=== PATIENT | male | born 1980 ===

== ENCOUNTER 2020-06-27 14:37 | Inpatient (IN) | payer BC ==
[~2020-06-27] VITALS: Ht 177.8 cm; Wt 89.1 kg
--- NOTE | 2020-06-27 14:15 | NUR ---
PT ARRIVED VIA EMS ON STRETCHER. PT AMBULATED TO BATHROOM AND BACK INTO BED. PT A/O X3. RR EVEN NON LABORED. TEMP IN ROOM ADJUSTED PER REQUEST. VS STABLE. PT DENIES PAIN, STATES TO BE A "LITTLE NAUSOUS FROM THE RIDE." PT KEPT NPO PER VERBAL ORDER FROM ENZO ZABALA IN ROOM UNTIL FURTHER NOTICE. PT AWARE AND AGREES TO PLAN OF CARE. SPOUSE GIVEN ROOM INFORMATION. NO NEEDS VOICED. CLWR.
[2020-06-27 14:53] VITALS: BP 166/97; Ht 177.8 cm; Wt 89.1 kg
[2020-06-27 15:59] VITALS: BP 156/84
[2020-06-27 16:59] LABS: BASOPHILS 0.1 % (0-2); EOSINOPHILS 0.1 % (0-7); HEMATOCRIT 38.8 % (42.0-54.0); HEMOGLOBIN 12.8 g/dL (13.5-17.5); IMMATURE GRANULOCYTES 0.1 % (0-5); LYMPHOCYTE ABS# 0.62 10x3/uL (1.32-3.57); LYMPHOCYTES 9.1 % (15-50); MCH 30.1 pg (26.0-34.0); MCV 91.3 fL (80.0-100.0); MEAN PLATELET VOLUME 9.7 fL (7.4-10.4); NEUTROPHILS 83.6 % (40-80); PLATELET COUNT 193 10x3/uL (130-400); RBC 4.25 10x6/uL (4.20-6.10); RDW 12.3 % (11.5-14.5); WBC 6.8 10x3/uL (4.8-10.8)
[2020-06-27 17:16] LABS: ANION GAP 14.3 mmol/L (8-16); BILIRUBIN - TOTAL 0.51 mg/dL (0.2-1.3); CALCIUM 8.4 mg/dL (8.5-10.1); CREATININE - SERUM 4.1 mg/dL (0.6-1.3); INR 1.18 (0.85-1.17); POTASSIUM - SERUM 4.3 mmol/L (3.5-5.1); PROTEIN - SERUM 6.3 g/dL (6.4-8.2); PROTIME 13.9 SECONDS (11.6-15.0)
[2020-06-27 21:04] VITALS: BP 122/68
[2020-06-28] VITALS (7 sets, daily range): BP systolic 133–158; BP diastolic 75–101
--- NOTE | 2020-06-28 04:38 | NUR ---
PT IS RESTING IN BED, WITH FAMILY/FRIEND AT BEDSIDE. HAS BEEN COMPLAINING OF ABD PAIN AND BACK PAIN. HAS BEEN ALTERNATING BETWEEN PAIN MEDICATIONS. NO OTHER PAIN NOTED AT THIS TIME. BED IN LOWEST POSITION WITH CALL LIGHT IN REACH.
[2020-06-28 05:46] LABS: BASOPHILS 0.2 % (0-2); EOSINOPHILS 1.8 % (0-7); HEMATOCRIT 38.3 % (42.0-54.0); HEMOGLOBIN 12.5 g/dL (13.5-17.5); IMMATURE GRANULOCYTES 0.2 % (0-5); LYMPHOCYTE ABS# 0.82 10x3/uL (1.32-3.57); LYMPHOCYTES 16.6 % (15-50); MCHC 32.6 g/dL (31.0-37.0); MCV 91.8 fL (80.0-100.0); MONOCYTES 14.1 % (2-11); NEUTROPHIL ABS# 3.32 10x3/uL (1.78-5.38); NEUTROPHILS 67.1 % (40-80); PLATELET COUNT 201 10x3/uL (130-400); RBC 4.17 10x6/uL (4.20-6.10); RDW 12.5 % (11.5-14.5)
[2020-06-28 06:06] LABS: ALBUMIN 2.9 g/dL (3.4-5.0); ANION GAP 13.9 mmol/L (8-16); BILIRUBIN - TOTAL 0.46 mg/dL (0.2-1.3); CALCIUM 8.2 mg/dL (8.5-10.1); CARBON DIOXIDE 23.7 mmol/L (21.0-32.0); CREATININE - SERUM 4.2 mg/dL (0.6-1.3); MAGNESIUM - SERUM 2.6 mg/dL (1.8-2.4); PHOSPHOROUS 4.2 mg/dL (2.5-4.9); POTASSIUM - SERUM 4.6 mmol/L (3.5-5.1); PROTEIN - SERUM 6.2 g/dL (6.4-8.2)
[2020-06-28 08:12] LABS: APTT 33.3 SECONDS (22.8-39.4); INR 1.15 (0.85-1.17); PROTIME 13.6 SECONDS (11.6-15.0)
--- NOTE | 2020-06-28 10:47 | NUR ---
PATIENT AAOX4, RESP EVEN AND NON LABORED, NO S/S OF DISTRESS, PROCEDURE RESCHEDULED FOR 06/29 DUE TO PATIENT EATING APPLE SAUCE AT 0430, STARTING 24 HR URINE TODAY, NO FURTHER NEEDS AT THIS TIME, RAINER MAI
--- NOTE | 2020-06-28 11:26 | NUR ---
814 - WENT TO GET PT FOR BIOPSY AND PT HAD EATEN APPLESAUCE WITH MORNING MEDICATIONS. REITERATED WITH NURING STAFF THAT PT NEEDED TO BE STRICT NPO WITH SIPS OF WATER WITH MEDICATION. NOTIFIED DR FLORES
--- NOTE | 2020-06-28 17:44 | NUR ---
PATIENT 24 HR URINE STARTED AT 1430 06/28/20 AND WILL END 06/29/20 AT 1430. PLEASE KEEP ON FRESH ICE.
--- NOTE | 2020-06-29 02:53 | NUR ---
PATIENT NPO SINCE MIDNIGHT. REVIEWED WITH PATIENT, VERBALIZED UNDERSTANDING. MEDICATED FOR ABD PAIN AND NAUSEA. WILL CONTINUE TO MONITOR
[2020-06-29 05:00] VITALS: BP 167/89
[2020-06-29 05:28] LABS: BASOPHILS 0.2 % (0-2); HEMATOCRIT 39.7 % (42.0-54.0); HEMOGLOBIN 13.1 g/dL (13.5-17.5); LYMPHOCYTE ABS# 0.91 10x3/uL (1.32-3.57); LYMPHOCYTES 16.8 % (15-50); MCH 30.5 pg (26.0-34.0); MCV 92.3 fL (80.0-100.0); MEAN PLATELET VOLUME 9.5 fL (7.4-10.4); MONOCYTES 11.8 % (2-11); NEUTROPHIL ABS# 3.69 10x3/uL (1.78-5.38); NEUTROPHILS 68.2 % (40-80); PLATELET COUNT 203 10x3/uL (130-400); RDW 12.6 % (11.5-14.5); WBC 5.4 10x3/uL (4.8-10.8)
[2020-06-29 05:54] LABS: ALBUMIN 3.2 g/dL (3.4-5.0); ANION GAP 11.3 mmol/L (8-16); BILIRUBIN - TOTAL 0.31 mg/dL (0.2-1.3); CALCIUM 8.5 mg/dL (8.5-10.1); CARBON DIOXIDE 27.1 mmol/L (21.0-32.0); CREATININE - SERUM 3.8 mg/dL (0.6-1.3); MAGNESIUM - SERUM 2.9 mg/dL (1.8-2.4); PHOSPHOROUS 4.4 mg/dL (2.5-4.9); POTASSIUM - SERUM 4.4 mmol/L (3.5-5.1); PROTEIN - SERUM 6.8 g/dL (6.4-8.2)
--- NOTE | 2020-06-29 07:47 | NUR ---
PATIENT BP ELEVATED SBP >170; STATES HE IS NERVOUS FOR THE BIOPSY TODAY. HYDRALAZINE GIVEN PER ORDERS. WILL RECHECK BP IN 1 HR.
[2020-06-29 08:25] VITALS: BP 176/95
--- NOTE | 2020-06-29 09:29 | NUR ---
CALLED [facility] AND SPOKE WITH VINICIO. WAS TOLD THAT A SIP OF WATER WITH HIS NORVASC WAS OKAY TO GIVE BEFORE RENAL BIOPSY TODAY. WILL GIVE NOW. PATIENT SHAKY AND NAUSEOUS, SAYS HE IS NERVOUS. BP IS HIGH. CALLED [facility] FOR ORDERS. ORDERED 1MG ATIVAN IV. GIVEN. PATIENT GETTING IN SHOWER AT THIS TIME.
--- NOTE | 2020-06-29 09:34 | NUR ---
[facility] WILL CALL FOR [facility] TO INFUSE WHEN THEY ARE READY TO COME UP AND GET PATIENT.
--- NOTE | 2020-06-29 11:05 | NUR ---
PATIENT DOWN TO OR. NO LONGER GETTING RENAL BIOPSY.
[2020-06-29 14:51] VITALS: BP 149/79
[2020-06-29 15:38] LABS: CREATININE - URINE 47.1 mg/dL (30-125)
--- NOTE | 2020-06-29 18:29 | NUR ---
ADA DRAIN DRESSING SATURATED. CHANGED DRESSING.
--- NOTE | 2020-06-29 19:38 | NUR ---
PATIENT COMPLAINING OF TROUBLE URINATING. BLADDER SCAN SHOWS 999+ML; PATIENT ASKED IF HE COULD TRY TO URINATE BEFORE WE TOOK ACTION. POST RESIDUAL SHOWS 790ML. DISCUSSED WITH ROLL FILLER RN.
[2020-06-29 21:44] VITALS: BP 158/89
--- NOTE | 2020-06-29 22:53 | NUR ---
PT UNABLE TO URINATE, C/O DISCOMFORT. BLADDER SCAN WITH >930ML. PT HAD VOIDED X2 SINCE PROCEDURE TODAY. NEW ORDER RECEIVED FOR PRICE PLACEMENT.
--- NOTE | 2020-06-29 23:00 | NUR ---
PRICE PLACED USING STERILE TECHNIQUE, 16FR, IMMEDIATE RETURN OF 700ML CLEAR YELLOW URINE. PT TOLERATED WELL. CPOC.
[2020-06-30 01:07] VITALS: BP 135/78
[2020-06-30 05:13] LABS: BASOPHILS 0 % (0-2); EOSINOPHILS 0 % (0-7); HEMATOCRIT 38.2 % (42.0-54.0); HEMOGLOBIN 12.3 g/dL (13.5-17.5); IMMATURE GRANULOCYTES 0.2 % (0-5); LYMPHOCYTE ABS# 0.58 10x3/uL (1.32-3.57); LYMPHOCYTES 9.1 % (15-50); MCHC 32.2 g/dL (31.0-37.0); MCV 93.2 fL (80.0-100.0); MEAN PLATELET VOLUME 9.7 fL (7.4-10.4); MONOCYTES 8.4 % (2-11); NEUTROPHIL ABS# 5.27 10x3/uL (1.78-5.38); NEUTROPHILS 82.3 % (40-80); PLATELET COUNT 234 10x3/uL (130-400); RDW 12.7 % (11.5-14.5); WBC 6.4 10x3/uL (4.8-10.8)
[2020-06-30 05:31] LABS: ANION GAP 13.1 mmol/L (8-16); BILIRUBIN - TOTAL 0.16 mg/dL (0.2-1.3); CALCIUM 8.7 mg/dL (8.5-10.1); CARBON DIOXIDE 26.6 mmol/L (21.0-32.0); MAGNESIUM - SERUM 2.4 mg/dL (1.8-2.4); PHOSPHOROUS 4.3 mg/dL (2.5-4.9); POTASSIUM - SERUM 4.7 mmol/L (3.5-5.1); PROTEIN - SERUM 6.5 g/dL (6.4-8.2)
[2020-06-30 05:36] VITALS: BP 134/76
[2020-06-30 05:38] LABS: CREATININE - SERUM 2.7 mg/dL (0.6-1.3)
[2020-06-30 08:03] VITALS: BP 137/82
--- NOTE | 2020-06-30 10:15 | NUR ---
PATIENT SITTING HIGH FOWLERS AAOX4, RESP EVEN AND NON LABORED, PATIENT APPEARS DISTRESSED BY HIS FACIAL APPERANCE, PAIN IS A 10, MEDICATIONS ADMINISTERED WITH NO COMPLICATIONS, 1000ML LIGHT YELLOW URINE OUT OF PRICE, ADA DRAIN INTACT AND BULB SQUEEZED AND WORKING CORRECTLY, NO FURTHER NEEDS AT THIS TIME, CLIR, BLP
[2020-06-30 11:18] VITALS: BP 131/81
[2020-06-30 16:01] VITALS: BP 131/81
--- NOTE | 2020-06-30 19:45 | NUR ---
INITIAL ROUNDS AND ASSESSMENT COMPLETED. PT RESTING IN BED WITH NO DISTRESS. PLAN OF CARE REVIEWED. CALL LIGHT IN REACH.
[2020-06-30 22:12] VITALS: BP 151/96
--- NOTE | 2020-07-01 00:18 | NUR ---
PT FEELS HIS RIGHT HAND IS SWOLLEN. COMPARED RIGHT TO LEFT AND DID NOT SEE ANY DIFFERENCE. HIS IV IS LOCATED IN HIS RIGHT A/C AND THERE ARE NO SIGNS OF INFILTRATION. PT VERY CONCERNED ABOUT THIS. STOPPED IVF FOR NOW. PLACED RIGHT ARM ON PILLOW WITH HAND ELEVATED/ELBOW DOWN. EXPLAINED THAT THIS CAN BE DONE FOR A WHILE, BUT THEN THE IVF NEED TO BE RESTARTED SINCE THAT MAY BE PART OF THE RENAL PLAN TO CHALLENGE HIS KIDNEYS AND DECREASING HIS BUN/CREATININE. PT ALSO ASKING FOR PAIN MED. GIVEN TYLENOL #3 AT THIS TIME. AT BEDSIDE. ALSO EMPTIED ADA DRAIN OF 100ML SEROSANGUINEOUS OUTPUT.
--- NOTE | 2020-07-01 04:40 | NUR ---
PT AWAKE WITH C/O PAIN TO ABDOMEN, UNCLEAR ON WHEN HE LAST HAD ANY PAIN MEDS AND SAYING HE WAS DUE FOR MEDS. EXPLAINED THAT ALL PAIN MEDS ARE ORDERED NEEDED AND PT WILL HAVE TO ASK IF HE NEEDS MED. DISCUSSED AVAILABLE MEDS FOR PAIN AND PT AGREED TO TRY ORAL DILAUDID FOR HIS PAIN. RIGHT ARM IS NO LONGER CAUSING HIM DISCOMFORT SO IVF ARE RESTARTED AT 75ML/HR AT THIS TIME. CALL LIGHT IN REACH. AT BEDSIDE.
[2020-07-01 05:07] LABS: BASOPHILS 0.2 % (0-2); EOSINOPHILS 1.8 % (0-7); HEMATOCRIT 39.9 % (42.0-54.0); HEMOGLOBIN 12.7 g/dL (13.5-17.5); IMMATURE GRANULOCYTES 0.2 % (0-5); LYMPHOCYTES 17.8 % (15-50); MCH 29.7 pg (26.0-34.0); MCHC 31.8 g/dL (31.0-37.0); MCV 93.4 fL (80.0-100.0); MEAN PLATELET VOLUME 9.8 fL (7.4-10.4); MONOCYTES 8.2 % (2-11); NEUTROPHIL ABS# 4.45 10x3/uL (1.78-5.38); NEUTROPHILS 71.8 % (40-80); PLATELET COUNT 201 10x3/uL (130-400); RBC 4.27 10x6/uL (4.20-6.10); RDW 12.8 % (11.5-14.5); WBC 6.2 10x3/uL (4.8-10.8)
[2020-07-01 05:52] LABS: ALBUMIN 2.9 g/dL (3.4-5.0); ANION GAP 13.7 mmol/L (8-16); BILIRUBIN - TOTAL 0.3 mg/dL (0.2-1.3); CALCIUM 8.5 mg/dL (8.5-10.1); CARBON DIOXIDE 26.4 mmol/L (21.0-32.0); CREATININE - SERUM 2.3 mg/dL (0.6-1.3); MAGNESIUM - SERUM 2.3 mg/dL (1.8-2.4); POTASSIUM - SERUM 4.1 mmol/L (3.5-5.1); PROTEIN - SERUM 6.2 g/dL (6.4-8.2)
[2020-07-01] MEDS ORDERED: CIPRO500 MG PO (11:12)
[2020-07-01] MEDS ORDERED: FLOMAX0.4 MG PO (11:12)
[2020-07-01] MEDS ORDERED: NORVASC5 MG PO (11:12)
--- NOTE | 2020-07-01 11:42 | NUR ---
PT AWAKE AND ORIENTED, LYING IN BED. C/O OF ABD PAIN RELATED TO GAS. REMOVED PRICE PER MD ORDER VIA STERILE NURISNG PROTCOL. POST VOID BLADDER SCAN INDICATED 46ML URINE LEFT. I/V OUT PER MD, TIP INTACT. PT IN SHOWER. TO D/C TODAY. AT BEDSIDE.
--- NOTE | 2020-07-01 12:04 | NUR ---
PRESCRIPTIONS CALLED IN TO MELINA RUEDA IN [facility], ORDERS GIVEN TO ABEBE THE PHARMACIST.
--- NOTE | 2020-07-01 13:19 | NUR ---
PT ESCORTED OUT VIA WHEELCHIAR TO POV, DRIVING.
--- NOTE | 2020-07-01 14:01 | MORECARE ---
CASE MANAGEMENT DISCHARGE SUMMARY PATIENT: RUPA MATA UNIT: [id number] ADM DATE: 06/27/20 AGE: 40 : 80 SEX: M ROOM/BED: D.2101 AUTHOR: KATE SERRANO PHYSICIAN: REFERRING PHYSICIAN: CHARLES WYNNE MD DATE OF SERVICE: 07/01/20 Case Management Discharge Planning Summary CT Patient Name: RUPA MATA Attending MD : NIA WYNNE, Medical Record: [id number] Encounter : [id number] Facility : [address] [place] [address] Admission Date : 114:37 Center Discharge Date : 07/01/[address] [place] [address] Date of : DC Plan ID : [id number] Age/Sex/Martia : 40/ M/U Printed on : 07/01/20 13:59 CT DCP Review Details Anticipated D/C: 07/01/2020 Expected LOS : 4 Case Status : INITIATED - Initial Reviewe: [id number] - Eevrton Yañez Initial Review: 06/27/2020 Planned Disposi: 01 - Home or Self Care (Routine Discharge) Final Discharge: - Final Reviewer : : Final Review : Comments CT Entered Date Type Reviewer 07/01/20 13:59 CT Discharge Planning Everton Yañez Comment CM met with patient to complete DC plan and to evaluate needs. Patient lives independently with his Chasity ([phone]). At discharge, the patient plans to return home and feels this is a safe discharge. Patient stated that his primary care physician is Mike Rush of [facility] [place] and he uses [email or web address] pharmacy. CM discussed availability of home health, rehab services, and medical equipment. Patient declined HHS, SNF, IPR, and DME. Patient voiced no other needs at this time and is satisfied with DC plan. Transportation provider at discharge will be with his Chasity. CM will continue to follow and will assist as needed with dc plans/needs. DCP Focus Questions & Answers DCP Evaluation Patient gives permission to discuss discharge nikki NUNEZ, plans with: (name, relationship and number) Patient's ability to cope with chronic illness d. No chronic illness Patient's current cognitive status: *Oriented to person, place, situation, time and present Patient and/or caregiver agree upon recommended Yes discharge plan? Physical Status: Independent with ADL's Functional screen assessment: Basic needs can adequately be met by self Functional screen assessment: No issues identified Does the patient have the ability to pay for or Yes attain post discharge needs / services? Living Arrangements: Home with Spouse/Significant Other Is there a likelihood that the patient will No require additional services to return to the preadmission environment? Equipment needed for post hospitalization: None Baseline cognitive status: *Oriented to person, place, situation, time and present Patient with capacity for self-care or can be Yes cared for in same environment as prior to hospitalization? Physical environment modification needed / No anticipated for discharge: Medication Management: Patient states can afford medications Medication Management: Patient states can read and understand medication labels Pharmacy name(s): [email or web address] Does Patient have transportation to get home and Yes to follow-up medical appointments when discharged from the hospital? Would patient like to participate in any Care Not applicable Coordination programs (if applicable): Does the patient have electricity at home? Yes Does the patient have running water in their Yes house? Equipment in use: None Mental health screen: No mental health history DCP Re-evaluation Would patient like to participate in any Care Not applicable Coordination programs (if applicable): [facility] RUPA MATA MR#: [id number] /Age/Sex/Qmleah11-Bcv-24 /40/M /U Attending Physician Name: RICCI [id number] Patient Account:[id number] [facility] Page -1 of 1 All edits/amendments must be made on the electronic document DICTATION DATE: 07/01/20 1359 DURALUMIN METALWORKER: YANNICK 07/01/20 1359 RPT#: [id number] DC DATE:07/01/20 STATUS: DIS IN [facility] [address] [place] [address] END OF REPORT
--- NOTE | 2020-07-02 15:51 | MORECARE ---
CASE MANAGEMENT DISCHARGE SUMMARY PATIENT: RUPA MATA UNIT: [id number] ADM DATE: 06/27/20 AGE: 40 : 80 SEX: M ROOM/BED: D.2100 AUTHOR: [email or web address] PHYSICIAN: REFERRING PHYSICIAN: CHARLES WYNNE MD DATE OF SERVICE: 07/02/20 Case Management Discharge Planning Summary CT Patient Name: RUPA MATA Attending MD : NIA WYNNE, Medical Record: [id number] Encounter : [id number] Facility : [address] [place] [address] Admission Date : 114:37 Center Discharge Date : 07/01/[address] [place] [address] Date of : DC Plan ID : [id number] Age/Sex/Martia : 40/ M/U Printed on : 07/02/20 15:50 CT DCP Review Details Anticipated D/C: 07/01/2020 Expected LOS : 4 Case Status : INITIATED - Initial Reviewe: [id number] - Everton Yañez Initial Review: 06/27/2020 Planned Disposi: 01 - Home or Self Care (Routine Discharge) Final Discharge: - Final Reviewer : : Final Review : Comments CT Entered Date Type Reviewer 07/01/20 13:59 CT Discharge Planning Everton Yañez Comment CM met with patient to complete DC plan and to evaluate needs. Patient lives independently with his Chasity ([phone]). At discharge, the patient plans to return home and feels this is a safe discharge. Patient stated that his primary care physician is Mike Rush of [facility] and he uses [facility] pharmacy. CM discussed availability of home health, rehab services, and medical equipment. Patient declined HHS, SNF, IPR, and DME. Patient voiced no other needs at this time and is satisfied with DC plan. Transportation provider at discharge will be with his Chasity. CM will continue to follow and will assist as needed with dc plans/needs. DCP Focus Questions & Answers DCP Evaluation Patient and/or caregiver agree upon recommended Yes discharge plan? Patient's current cognitive status: *Oriented to person, place, situation, time and present Patient's ability to cope with chronic illness d. No chronic illness Patient gives permission to discuss discharge nikki NUNEZ, plans with: (name, relationship and number) Does the patient have the ability to pay for or Yes attain post discharge needs / services? Functional screen assessment: No issues identified Functional screen assessment: Basic needs can adequately be met by self Physical Status: Independent with ADL's Equipment needed for post hospitalization: None Is there a likelihood that the patient will No require additional services to return to the preadmission environment? Living Arrangements: Home with Spouse/Significant Other Patient with capacity for self-care or can be Yes cared for in same environment as prior to hospitalization? Baseline cognitive status: *Oriented to person, place, situation, time and present Physical environment modification needed / No anticipated for discharge: Medication Management: Patient states can read and understand medication labels Medication Management: Patient states can afford medications Pharmacy name(s): [email or web address] Does Patient have transportation to get home and Yes to follow-up medical appointments when discharged from the hospital? Would patient like to participate in any Care Not applicable Coordination programs (if applicable): Does the patient have electricity at home? Yes Does the patient have running water in their Yes house? Equipment in use: None Mental health screen: No mental health history DCP Re-evaluation Would patient like to participate in any Care Not applicable Coordination programs (if applicable): [facility] RUPA MATA MR#: [id number] /Age/Sex/Bnwckt97-Hma-50 /40/M /U Attending Physician Name: RICCI [id number] Patient Account:[id number] [facility] Page -1 of 1 All edits/amendments must be made on the electronic document DICTATION DATE: 07/02/201549 PAINT TINTER: YANNICK 07/02/201549 RPT#: [id number] DC DATE:07/01/20 STATUS: DIS IN [facility] [address] [place] [address] END OF REPORT
== END 2020-07-01 13:19 | disposition home or self-care (01) | DRG 673 ==
LOC: D.M2 14:37
PROVIDERS: Internal Medicine Interventional Cardiology; Specialist; Surgery; ADMIT Family Medicine; ATTEND Family Medicine
PROC: 0DTJ4ZZ Resection of Appendix, Percutaneous Endoscopic Approach (ICD-10-PCS; 2020-06-29)
PROC: 0W9G4ZZ Drainage of Peritoneal Cavity, Percutaneous Endoscopic Approach (ICD-10-PCS; principal; 2020-06-29 13:15)
DX: N17.9 Acute kidney failure, unspecified (principal); K35.33 Acute appendicitis with perforation, localized peritonitis, and gangrene, with abscess; N10 Acute pyelonephritis; I10 Essential (primary) hypertension; R00.1 Bradycardia, unspecified